=== PATIENT | male | born 1965 | race Hispanic/Latino ===

== ENCOUNTER 2017-07-21 10:38 | Observation (INO) | payer BC, OTHER ==
[~2017-07-21] VITALS: Ht 177.8 cm; Wt 100.2 kg
[~2017-07-21 10:38] MED LIST: ACTOS30 MG PO; GABAPENTIN300 MG PO; JANUMET 50-5001 EACH PO; LIPITOR20 MG PO; NORCO 10-325 T1 EACH PO
[2017-07-21] MEDS ORDERED: ASPIRIN 81 MG CHEW TAB PO ONE (11:15)
--- NOTE | 2017-07-21 11:50 | Diagnostic Imaging Report ---
Examination: CT BRAIN WITHOUT CONTRAST History:Dizziness. Syncope. Comparison studies:Head CT performed October 10, 2007 Technique: Axial images were obtained from the skull base to the vertex. Coronal and sagittal images reconstructed from the axial data. Intravenous contrast: None Findings: Scalp: No abnormalities. Bones: No fractures, blastic or lytic lesions. Brain sulci: Appropriate for age. Ventricles: Normal in size and configuration. No hydrocephalus. Extra-axial space: No abnormalities. Parenchyma: No abnormal densities. No masses, hemorrhage, or acute or chronic cortical based vascular insults.. Sellar/suprasellar region: No abnormalities. Craniocervical junction: Patent foramen magnum. No Chiari one malformation. Incidental findings: None. Impression: No new or acute intracranial abnormalities. No change from prior head CT performed October 10, 2007. Signed by: Dr. Gabriela Flynn M.D. on 07/21/2017 11:46 AM
--- NOTE | 2017-07-21 11:59 | Diagnostic Imaging Report ---
PROCEDURE: Frontal and lateral views of the chest. COMPARISON: DX, RIBS UNILATERAL, 09/05/2007, 18:47. INDICATIONS: PASSED OUT FINDINGS: Lines/tubes: None. Lungs: The lungs are well inflated and clear. There is no evidence of pneumonia or pulmonary edema. Pleura: There is no pleural effusion or pneumothorax. Heart and mediastinum: The heart and the mediastinum are normal. Bones: Deformity of the posterior left eighth rib is concerning for a fracture of uncertain age. IMPRESSION: 1. Fracture of the posterior left eighth rib of uncertain age; please correlate for left posterior lower thoracic pain. If warranted, rib series may be helpful for further evaluation. Mack Metcalf M.D. Dictated by: Mack Metcalf M.D. on 07/21/2017 at 11:59 Electronically approved by: Mack Metcalf M.D. on 07/21/2017 at 11:59
[2017-07-21] MEDS ORDERED: LISINOPRIL10 MG PO (12:04)
[2017-07-21] MEDS ORDERED: METFORMIN HCL500 MG PO (12:07)
[2017-07-21] MEDS ORDERED: FLOMAX0.4 MG PO (12:07)
[2017-07-21] MEDS ORDERED: ERYTHROMYCIN250 M1 PO (12:07)
[2017-07-21] MEDS ORDERED: LAMOTRIGINE100 MG PO (12:07)
[2017-07-21] MEDS ORDERED: VICTOZA 2-0.6 MG/0.1 (12:09)
[2017-07-21] MEDS ORDERED: ADVAIR 100-501 EACH (12:09)
[2017-07-21 12:31] LABS: BASOPHILS % 0.3 % (0.0-1.0); EOSINOPHILS # (AUTO) 0.1 (0.0-0.4); EOSINOPHILS % 1.1 % (0.0-6.0); HEMATOCRIT 50.3 % (38.2-49.6); HEMOGLOBIN 16.5 g/dL (14.0-18.0); LYMPHOCYTES # (AUTO) 1.9 (1.0-3.2); LYMPHOCYTES % 17.7 % (18.0-39.1); MEAN CORPUSCULAR HGB CONC 32.8 g/dL (31-35); MEAN CORPUSCULAR VOLUME 94.5 fL (81-99); MONOCYTES # (AUTO) 0.9 (0.2-0.8); MONOCYTES % 8.3 % (4.4-11.3); NEUTROPHILS # (AUTO) 7.8 (2.1-6.9); NEUTROPHILS % 72.2 % (38.7-80.0); PLATELET COUNT 206 x10e3/uL (140-360); RED BLOOD COUNT 5.32 x10e6/uL (4.3-5.7); RED CELL DISTRIBUTION WIDTH 13.4 % (11.7-14.4)
[2017-07-21 12:33] LABS: KETONES,URINE TRACE (NEGATIVE); LEUKOCYTE ESTERASE ,URINE TRACE (NEGATIVE); NITRITE,URINE NEGATIVE (NEGATIVE); URINE UROBILINOGEN 4 mg/dL (0.2 - 1)
[2017-07-21 12:37] LABS: BILIRUBIN,URINE 1+ (NEGATIVE); PROTEIN,URINE DIPSTICK 2+ (NEGATIVE)
[2017-07-21 12:44] LABS: INR 1.03; PARTIAL THROMBOPLASTIN TIME 25.8 seconds (23.8-35.5); PROTHROMBIN TIME 12.7 seconds (11.9-14.5)
[2017-07-21 12:52] LABS: ALANINE AMINOTRANSFERASE 11 IU/L (0-55); ALBUMIN 3.8 g/dL (3.5-5.0); ALBUMIN/GLOBULIN RATIO 1.2 (0.8-2.0); ALKALINE PHOSPHATASE 56 IU/L (40-150); ANION GAP 14.8 mmol/L (8-16); BLOOD UREA NITROGEN 24 mg/dL (7-26); BUN/CREATININE RATIO 13 (6-25); CALCIUM 8.9 mg/dL (8.4-10.2); CARBON DIOXIDE 26 mmol/L (22-29); CHLORIDE 102 mmol/L (98-107); CREATINE KINASE 282 IU/L (30-200); EST GLOMERULAR FILTRATION RATE 40 ML/MIN (60-); GLUCOSE 106 mg/dL (74-118); POTASSIUM 4.8 mmol/L (3.5-5.1); SODIUM 138 mmol/L (136-145)
[2017-07-21 13:04] LABS: CLARITY,URINE HAZY (CLEAR); COLOR,URINE YELLOW (YELLOW)
[2017-07-21 13:07] LABS: EPITHELIAL CELLS,URINE FEW /LPF; RBC,URINE 0-5 /HPF (0-5); TRANSITIONAL EPI CELLS,URINE FEW; WBC,URINE (MAN) 0-5 /HPF (0-5)
[2017-07-21 13:11] LABS: BACTERIA,URINE RARE /HPF; CALCIUM OXALATE CRYSTALS,UR RARE (FEW)
[2017-07-21] MEDS ORDERED: ONDANSETRON HCL INJ 2 MG/ML VIAL IV PRN (17:00)
--- OUTSIDE RECORDS SUMMARY | 2017-07-21 17:58 | XMS REPORT ---
Author Author [facility] Address Unknown Phone Unavailable Care Team Providers Care Manager Of Creative Services Name Role Phone BRANDY YOUNG Unavailable Unavailable Problems This patient has no known problems. Allergies, Adverse Reactions, Alerts This patient has no known allergies or adverse reactions. Medications This patient has no known medications. Results Test Description Test Time Test Comments Text Results Atomic Results Result Comments CT BRAIN WO [place] [address] Patient Name: RAYA REDMAN MR #: [id number] : 1965 Age/Sex: 51/M Req #: [id number] Adm Physician: Ordered by: ANDREWS HERMAN Report #: [id number] Location: ER Room/Bed: Procedure: [id number] CT/CT BRAIN WO Exam Date: 07/21/17 Exam Time: 1120 REPORT STATUS: Signed Examination: CT BRAIN WITHOUT CONTRAST History:Dizziness. Syncope. Comparison studies:Head CT performed October 10, 2007 Technique: Axial images were obtained from the skull base to the vertex. Coronal and sagittal images reconstructed from the axial data. Intravenous contrast: None Findings: Scalp: No abnormalities. Bones: No fractures, blastic or lytic lesions. Brain sulci: Appropriate for age. Ventricles: Normal in size and configuration. No hydrocephalus. Extra- axial space: No abnormalities. Parenchyma: No abnormal densities. No masses, hemorrhage, or acute or chronic cortical based vascular insults.. Sellar/suprasellar region: No abnormalities. Craniocervical junction: Patent foramen magnum. No Chiari one malformation. Incidental findings: None. Impression: No new or acute intracranial abnormalities. No change from prior head CT performed October 10, 2007. Signed by: Dr. Gabriela Valdivia M.D. on 07/21/2017 11:46 AM Dictated By: GABRIELA VALDIVIA MD 1146 Transcribed By: CHRISTOPHER on 07/21/17 1146 COPY TO: ANDREWS HERMAN CHEST 2 VIEWS [place] [address] Patient Name: RAYA REDMAN MR #: [id number] : 1965 Age/Sex: 51/M Req #: [id number] Adm Physician: Ordered by: ANDREWS HERMAN Report #: [id number] Location: ER Room/Bed: Procedure: [id number] DX/CHEST 2 VIEWS Exam Date: 07/21/17 Exam Time: 1130 REPORT STATUS: Signed PROCEDURE: Frontal and lateral views of the chest. COMPARISON: DX, RIBS UNILATERAL, 09/05/2007, 18:47. INDICATIONS: PASSED OUT FINDINGS: Lines/tubes: None. Lungs : The lungs are well inflated and clear. There is no evidence of pneumonia or pulmonary edema. Pleura: There is no pleural effusion or pneumothorax. Heart and mediastinum: The heart and the mediastinum are normal. Bones: Deformity of the posterior left eighth rib is concerning for a fracture of uncertain age. IMPRESSION: 1. Fracture of the posterior left eighth rib of uncertain age; please correlate for left posterior lower thoracic pain. If warranted, rib series may be helpful for further evaluation. Mack Cruz M.D. Dictated by: Mack Cruz M.D. on 07/21/2017 at 11:59 Electronically approved by : Mack Cruz M.D. on 07/21/2017 at 11:59 Dictated By: JAMARCUS CRUZ MD, MD 1159 COPY TO: ANDREWS HERMAN
[2017-07-21] MEDS: SODIUM CHLORIDE 0.9% 1000ML 1,000 ML IV SCH (18:31)
[2017-07-21] MEDS ORDERED: ADDERALL 30 MG30 MG PO (22:46)
[2017-07-22] VITALS: BP 146/77
[2017-07-22] MEDS: SODIUM CHLORIDE 0.9% 1000ML 1,000 ML IV SCH ×2 (02:39→08:48)
[2017-07-22 04:00] VITALS: BP 151/76
[2017-07-22 05:57] LABS: BASOPHILS % 0.3 % (0.0-1.0); EOSINOPHILS # (AUTO) 0.2 (0.0-0.4); EOSINOPHILS % 2.1 % (0.0-6.0); HEMATOCRIT 49.1 % (38.2-49.6); HEMOGLOBIN 16.1 g/dL (14.0-18.0); LYMPHOCYTES # (AUTO) 2.8 (1.0-3.2); LYMPHOCYTES % 26.3 % (18.0-39.1); MEAN CORPUSCULAR HEMOGLOBIN 31.3 pg (28-32); MEAN CORPUSCULAR HGB CONC 32.8 g/dL (31-35); MEAN CORPUSCULAR VOLUME 95.5 fL (81-99); MONOCYTES # (AUTO) 0.9 (0.2-0.8); MONOCYTES % 8.5 % (4.4-11.3); NEUTROPHILS # (AUTO) 6.6 (2.1-6.9); NEUTROPHILS % 62.5 % (38.7-80.0); PLATELET COUNT 195 x10e3/uL (140-360); RED BLOOD COUNT 5.14 x10e6/uL (4.3-5.7); RED CELL DISTRIBUTION WIDTH 13.5 % (11.7-14.4)
[2017-07-22 06:15] LABS: ANION GAP 13.6 mmol/L (8-16); BLOOD UREA NITROGEN 19 mg/dL (7-26); BUN/CREATININE RATIO 17 (6-25); CALCIUM 8.2 mg/dL (8.4-10.2); CARBON DIOXIDE 24 mmol/L (22-29); CHLORIDE 107 mmol/L (98-107); CREATININE, SERUM 1.13 mg/dL (0.72-1.25); EST GLOMERULAR FILTRATION RATE > 60 ML/MIN (60-); GLUCOSE 86 mg/dL (74-118); POTASSIUM 4.6 mmol/L (3.5-5.1); SODIUM 140 mmol/L (136-145)
[2017-07-22 08:01] VITALS: BP 121/65
[2017-07-22 08:48] VITALS: BP 121/65
[2017-07-22] MEDS ORDERED: ASPIRIN 81 MG ENTERIC COATED PO SCH (09:00)
[2017-07-22 12:24] VITALS: BP 137/68
--- NOTE | 2017-07-22 16:26 | Consultation ---
DATE OF CONSULTATION: July 22, 2017 CARDIAC CONSULTATION REASON FOR CONSULTATION: Syncope, hypertension, history of coronary artery disease and peripheral arterial vascular disease. HISTORY: A 51-year-old gentleman who came to this institution after an episode of syncope yesterday. He was going to upstairs, he felt dizzy, and he got some prodrome sign. No chest pain nothing, he just felt lightheaded while he was going upstairs and then he fell and he got injury to his change. Patient feeling great now, "I want to go home now." Patient is known with longstanding history of diabetes mellitus, coronary artery disease, stress status on several medications in addition to chronic pain of cervical and low back. Patient followed by his doctor. He takes his medications regularly. Recently, his lisinopril decreased from 20 to 10. He denied having any angina. He is very active. He denied having any prior syncope. He denied having any seizure activity. He denied having any orthopnea or paroxysmal nocturnal dyspnea. He is able to do his status; however, after questioning the patient, he claims he does have COPD and he takes Advair, but this is "under control." There is no recent travel or swelling of the lower extremities. There is no pleuritic and no pericarditic chest pain. REVIEW OF SYSTEMS GENERAL: No fever. No chills. HEENT: No hearing problem. No vision problem. PULMONARY: As per acute illness. CARDIAC: As per acute illness. GI: No hematemesis. No melena. : Increased frequency of urination. NEUROMUSCULAR: Severe back pain and neck pain. Patient takes pain medication. PSYCHIATRIC: Patient is under stress and he takes medication for stress. HEMATOLOGY: No easy bruising or bleeding. SOCIAL HISTORY: He is . He stopped smoking few years back. He does not drink alcohol. HOME MEDICATIONS: Include; 1. Adderall. 2. Effexor. 3. Lamictal. 4. Flomax. 5. Actos. 6. Metformin 1000 twice a day. 7. Gabapentin 200 mg 2 tablets t.i.d. 8. Lisinopril 20 mg a day. 9. Advair 250/50 p.r.n. PAST MEDICAL HISTORY 1. Coronary artery disease, status post cardiac cath few years with 50% coronary artery disease. 2. Renal artery disease, status post right and left stenting. 3. Diabetes mellitus and end-organ damage. 4. Stress and psychiatric condition, on treatment. 5. Chronic back pain and cervical spine pain. 6. Colon surgery. 7. Perianal abscess surgery. 8. COPD. FAMILY HISTORY: Father in his 70s with suicide. Mother old and she is fine. All his siblings, brothers, and sisters without any premature coronary artery disease. He lost a daughter for a reason he does not like to discuss it. PHYSICAL EXAMINATION VITAL SIGNS: Overweight gentleman, height of 5 feet 10 inches, weight of 221 pounds. Blood pressure 137/60, pulse rate of 70, respiratory rate of 18, temperature of 97.4 Fahrenheit. HEENT: Pupils are reactive. NECK: No elevation of jugular venous pulsation. No bruit. CHEST: Clear to auscultation and percussion. HEART: PMI in 5th left intercostal space. Normal 1st and 2nd heart sounds. ABDOMEN: Soft with no organomegaly. No abdominal bruits. EXTREMITIES: Decreased pulses in feet. NEUROLOGIC: Neck is supple. No gross motor deficits. LABORATORY DATA: Admission BUN at 24, creatinine of 1.8. Today, BUN and creatinine of 19 and 1.13 after the IV fluid. Hemoglobin 16.1, hematocrit 49%, white blood cell count of 10.9. BNP of 104. Lipid profile is not available. Hemoglobin A1c is not available. EKG showing normal sinus rhythm. CT head showed no acute changes. Chest x-ray showing left 8th rib fracture. IMPRESSION AND PLAN 1. Syncope. 2. Hypertension. 3. Known with coronary artery disease and peripheral arteriovascular disease. 4. Diabetes mellitus and end-organ damage. 5. Chronic pain. 6. Chronic obstructive pulmonary disease. 7. Hyperlipidemia, possibly. 8. Stressful condition, on several medications for that. Differential diagnoses of syncope between cardiac and noncardiac are explained at length as discussed. His telemetry overnight showed no arrhythmia. Importance of patient in his age group and with his history, he needs to have a stress test. Patient wants to go home. He understands his condition. He said he will follow with his physician. Currently, I will advise him to keep his current medication with the exception of lisinopril to decrease to 10 mg a day and to have his blood pressure frequently checked. Long differential diagnoses and lung issues are discussed and explained. Questions are answered. Job#: [id number] VAS
== END 2017-07-22 14:39 | disposition home or self-care (01) ==
LOC: ER 10:38 → ERHOLD 17:55 → IMCU 19:59
DX: R55 Syncope and collapse (principal); I10 Essential (primary) hypertension; I25.10 Atherosclerotic heart disease of native coronary artery without angina pectoris; E11.9 Type 2 diabetes mellitus without complications; J44.9 Chronic obstructive pulmonary disease, unspecified; G89.29 Other chronic pain; F43.9 Reaction to severe stress, unspecified; F31.9 Bipolar disorder, unspecified; E66.01 Morbid (severe) obesity due to excess calories; Z68.31 Body mass index [BMI] 31.0-31.9, adult
CPT/HCPCS: 36415 ×2; 70450; 71046; 80048; 80053; 81001; 82550; 82553; 82948 ×2; 83735; 83880; 84484; 85025 ×2; 85610; 85730; 87086; 93005 ×2; 93306; 93880; 97139; 99284; G0378 ×2; J7030 ×2

== ENCOUNTER 2017-07-26 10:03 | Emergency (ER) | payer BC, OTHER ==
[~2017-07-26] VITALS: Ht 177.8 cm; Wt 100.2 kg
[~2017-07-26 10:03] MED LIST changes: +ADDERALL 30 MG30 MG PO; +ADVAIR 100-501 EACH; +ERYTHROMYCIN250 M1 PO; +FLOMAX0.4 MG PO; +LAMOTRIGINE100 MG PO; +LISINOPRIL10 MG PO; +METFORMIN HCL500 MG PO; +VICTOZA 2-0.6 MG/0.1
[2017-07-26] MEDS ORDERED: IBUPROFEN 600 MG TAB PO STA (11:56)
--- NOTE | 2017-07-26 13:23 | Diagnostic Imaging Report ---
PROCEDURE:C-SPINE AP AND LAT WITH FLEX AND EXT COMPARISON:None. INDICATIONS:NECK PAIN FINDINGS: The lateral view is visualized from the skull base to C7. The patient is status post anterior cervical discectomy and fusion from C5-C7. The hardware is intact without lucency surrounding the screws to suggest loosening. The vertebral bodies are symmetric and well-aligned. The facets and spinous processes are normally aligned. There are no fractures, lytic or blastic lesions. The disc-space heights are well-maintained. There is no listhesis on neutral, flexion, or extension images. The C1/C2-odontoid interval is normal. The pre-vertebral soft tissues are normal. Skull base and upper chest are unremarkable. CONCLUSION: Status post ACDF from C5-C7 with normal alignment on all positions. Dictated by: Augustine Maldonado M.D. on 07/26/2017 at 13:22 Electronically approved by: Augustine Maldonado M.D. on 07/26/2017 at 13:22
--- NOTE | 2017-07-26 14:42 | Diagnostic Imaging Report ---
PROCEDURE:THORACIC SPINE 2VW COMPARISON:Chest x-ray 1121 hrs., rib series 09/05/2007 INDICATIONS:UPPER BACK PAIN, FUSION OF C-SPINE FINDINGS: Alignment maintained on AP view. No vertebral body compression. No compression or subluxation suggested on lateral views. There is endplate osteophytic lipping in the lower thoracic spine. Cervicothoracic junction demonstrates anterior cervical discectomy and fusion hardware. The hardware is intact. Visualized portion of the cervical spine is in anatomic alignment. Visualized lung lopez are clear. Eventration of the right and left hemidiaphragms are stable. A healed left posterior rib fracture is stable. IMPRESSION: Mild degenerative changes of the thoracic spine. No gross abnormalities. Dictated by: Augustine Maldonado M.D. on 07/26/2017 at 14:41 Electronically approved by: Augustine Maldonado M.D. on 07/26/2017 at 14:41
== END 2017-07-26 16:14 | disposition home or self-care (01) ==
LOC: ER 10:03
DX: S16.1XXA Strain of muscle, fascia and tendon at neck level, initial encounter (principal); I10 Essential (primary) hypertension; E11.9 Type 2 diabetes mellitus without complications
CPT/HCPCS: 72050; 72070; 99283

== ENCOUNTER 2017-08-08 10:03 | Emergency (ER) | payer BC ==
[~2017-08-08] VITALS: Ht 177.8 cm; Wt 100.2 kg
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
--- NOTE | 2017-08-08 10:46 | Diagnostic Imaging Report ---
PROCEDURE:X-RAY RIGHT KNEE, THREE OR MORE VIEWS COMPARISON:None. INDICATIONS:RIGHT KNEE TRAUMA, TIBIAL PLATEAU FRACTURE FINDINGS: The bones are well-mineralized. There are no fractures, subluxations, lytic or blastic lesions. There is vascular calcification. Deformity of the proximal fibula likely represents old injury. Tibial plateau appears intact. There is no evidence of a joint effusion. CONCLUSION: No acute bony abnormality. Chepe Justin D.O. Dictated by: Chepe Justin D.O. on 08/08/2017 at 10:46 Electronically approved by: Chepe Justin D.O. on 08/08/2017 at 10:46
== END 2017-08-08 12:19 | disposition home or self-care (01) ==
LOC: ER 10:03
DX: S83.411A Sprain of medial collateral ligament of right knee, initial encounter (principal); W10.8XXA Fall (on) (from) other stairs and steps, initial encounter; Y92.008 Other place in unspecified non-institutional (private) residence as the place of occurrence of the external cause
CPT/HCPCS: 99283